=== PATIENT | male | born 1945 | race Two or more races ===

== ENCOUNTER 2020-06-24 07:40 | Day surgery (SDC) | payer MEDICARE, SELFPAY ==
[~2020-06-24] VITALS: Ht 177.8 cm; Wt 72.6 kg
[2020-06-24] VITALS (8 sets, daily range): BP systolic 113–149; BP diastolic 67–75
--- NOTE | 2020-06-24 06:29 | Pre-Procedure Note/Attestation ---
Pre-Procedure Note/Attestation Complete Prior to Procedure Planned Procedure: left - Removal of cataract and placement of intraocular lens , left eye Procedure Narrative: Removal of cataract and placement of intraocular lens, left eye Indications for Procedure Pre-Operative Diagnosis: Cataract, combined, left eye Attestation I attest that I discussed the nature of the procedure; its benefits; risks and complications; and alternatives (and the risks and benefits of such alternatives ), prior to the procedure, with the patient (or the patient's legal retention representative). I attest that, if there was a reasonable possibility of needing a blood transfusion, the patient (or the patient's legal retention representative) was given the [place] Department of Health Services standardized written summary, pursuant to the [place] Blood Safety Act ([place] Health and Safety Code # 1645, as amended). I attest that I re-evaluated the patient just prior to the surgery and that there has been no change in the patient's H&P, except as documented below: John Jacobo MD Jun 24, 2020 06:29
[~2020-06-24 07:40] MED LIST: AMLODIPINE BESYL5 MG ORAL; ATENOLOL25 MG ORAL; ATORVASTATIN CA40 MG ORAL; LEXAPRO20 MG ORAL; LISINOPRIL2.5 MG ORAL; NEURONTIN600 MG ORAL; PROSCAR5 MG ORAL
[2020-06-24] MEDS ORDERED: Lidocaine 4% Amp 5ml ONE (09:09)
[2020-06-24] MEDS ORDERED: Lidocaine 1% MPF 10mg/ml 5ml ONE (09:09)
[2020-06-24] MEDS ORDERED: EPINEPHrine 1mg/1ml Amp ONE (09:09)
[2020-06-24] MEDS ORDERED: Tetracaine 0.5% Opth 4ml Soln ONE ×2 (09:10→11:56)
[2020-06-24] MEDS ORDERED: prednisoLONE acetate 1% Opth Susp 1ml ONE (09:10)
[2020-06-24] MEDS ORDERED: BSS 500ml btl ONE (09:10)
[2020-06-24] MEDS ORDERED: BSS 15ml BTL ONE (09:10)
[2020-06-24] MEDS ORDERED: Maxitrol Opth Oint 3.5gm ONE (09:10)
[2020-06-24] MEDS ORDERED: Sodium Hyaluronate 10 mg/ml 0.85ml ONE (09:10)
[2020-06-24] MEDS ORDERED: Povidone-Iodine 5% opth solution ONE (09:10)
[2020-06-24] MEDS: Ciprofloxacin Opth Soln 5ml LEFT EYE SCH ×3 (09:25→09:55)
[2020-06-24] MEDS: Phenylephrine 10% Opth Soln 5ml LEFT EYE SCH ×3 (09:26→09:56)
[2020-06-24] MEDS: Akten 3.5% 1ml Btl LEFT EYE SCH ×3 (09:26→09:57)
[2020-06-24] MEDS: Flurbiprofen 0.03% Opth Sol 2.5ml LEFT EYE SCH ×3 (09:26→09:56)
[2020-06-24] MEDS: Tobradex Opth Susp 2.5ml LEFT EYE SCH ×3 (09:26→09:56)
[2020-06-24] MEDS: Tropicamide 1% Opth 15ml Soln LEFT EYE SCH ×3 (09:27→09:56)
[2020-06-24] MEDS: Cyclopentolate 1% Opth Sol 2ml LEFT EYE SCH ×3 (09:27→09:56)
[2020-06-24] MEDS ORDERED: NS Irrig 1000ml ONE (12:00)
[2020-06-24] MEDS ORDERED: LR 1000ml ONE (12:00)
[2020-06-24] MEDS ORDERED: Sterile Water Irrig 1000ml IRRIG ONE (12:00)
[2020-06-24] MEDS ORDERED: fentaNYL 100 mcg/2 mL IV ONE (12:00)
[2020-06-24] MEDS ORDERED: LR 1000ml 1,000 ML IVLG SCH (12:02)
--- NOTE | 2020-06-24 12:02 | Anethesia Preoperative Eval ---
Anesthesia Pre-op PMH/ROS General Date of Evaluation: Jun 24, 2020 Time of Evaluation: 11:40 Anesthesiologist: Denis ASA Score: ASA 3 Mallampati Score Class I : Soft palate, uvula, fauces, pillars visible Class II: Soft palate, uvula, fauces visible Class III: Soft palate, base of uvula visible Class IV: Only hard plate visible Mallampati Classification: Class II Surgeon: Odalis Diagnosis: L eye cataract Surgical Procedure: Cataract extraction Anesthesia History: none Family History: no anesthesia problems Allergies: Coded Allergies: No Known Allergies (Unverified , 06/22/20) Medications: see eMAR Patient NPO?: Yes Past Medical History Cardiovascular: Reports: HTN, CAD - stable no recent CP, stents ; Denies: CO, valve dz, arrhythmia, other Pulmonary: Denies: asthma, COPD, JESU, other Gastrointestinal/Genitourinary: Reports: GERD, CRI, other - prostate CA s/p Sx Neurologic/Psychiatric: Reports: other - bilateral hands tremor; Denies: dementia, CVA, depression/anxiety, TIA Endocrine: Reports: DM; Denies: hypothyroidism, steroids, other HEENT: Reports: cataract (L), cataract (R); Denies: glaucoma, [place] (L), [place] (R), other Hematology/Immune: Denies: anemia, DVT, bleeding disorder, other Musculoskeletal/Integumentary: Reports: OA; Denies: RA, DJD, DDD, edema, other PMH Narrative: as above PSxH Narrative: T&A, hernia, laminectomy, prostatectomy Anesthesia Pre-op Phys. Exam Physician Exam Last Vital Signs Date Time Temp Pulse Resp B/P (MAP) Pulse Ox O2 Delivery O2 Flow Rate FiO2 06/24/20 09:46 Room Air 06/24/20 09:38 97.8 59 18 113/67 96 Constitutional: NAD Neurologic: CN 2-12 intact Cardiovascular: RRR, no M/R/G Respiratory: CTA Gastrointestinal: S/NT/ND Airway Exam Mallampati Score: Class II MO: limited Neck: stiff ROM: limited Teeth: missing Dentures: no upper, no lower Anesthesia Pre-op A/P Labs see chart Studies Pre-op Studies: EKG - SR Risk Assessment & Plan Assessment: ASA 3 Plan: MAC Status Change Before Surgery: No Emeka Barrios MD Jun 24, 2020 12:02
[2020-06-24] MEDS ORDERED: fentaNYL 100 mcg/2 mL IV PRN (12:15)
--- NOTE | 2020-06-24 12:40 | Discharge Instructions ---
Discharge Instructions Discharge Instructions Follow Up Orders Continue preoperative eye drops Wear shield at all times except to place eye drops Followup tomorrow in Dr Jacboo's office For Congestive Heart Failure Reminder Report to your physician any weight gain of 5 pounds or more in one week. John Jacobo MD Jun 24, 2020 12:40
--- NOTE | 2020-06-24 12:43 | Brief Operative Note ---
Immediate Post Operative Note Operative Note Pre-op Diagnosis: Cataract, combined, left eye Procedure: Phaco PC IOL OS Post-op Diagnosis: +4 NS (very dense centrally) +3 Cortical, +3 PSC Post-op Diagnosis: same as pre-op Surgeon: Hank Jacobo MD MS Marble Cutter: none Anesthesiologist: Dr Barrios Anesthesia: local, MAC Specimen: none Complications: none Fluids: see chart Implant(s) used?: Yes - Chris TFNT00 20.0 John Jacobo MD Jun 24, 2020 12:43
[2020-06-24] MEDS ORDERED: Carbachol 0.01% Op Soln 1.5ml vial ONE (12:46)
--- NOTE | 2020-06-24 12:46 | Immediate Post-Op Evaluation ---
Immediate Post-Op Evalulation Immediate Post-Op Evalulation Procedure: L eye cataract extraction with IOL Date of Evaluation: Jun 24, 2020 Time of Evaluation: 12:45 IV Fluids: 300 Blood Products: none Estimated Blood Loss: none Urinary Output: none Blood Pressure Systolic: 139 Blood Pressure Diastolic: 74 Pulse Rate: 58 Respiratory Rate: 19 O2 Sat by Pulse Oximetry: 97 Temperature (Fahrenheit): 97.7 Pain Score (1-10): 1 Nausea: No Vomiting: No Complications none Patient Status: awake, patent, none Hydration Status: adequate Emeka Barrios MD Jun 24, 2020 12:46
--- NOTE | 2020-06-24 12:48 | 48 Hour Post Anesthesia Eval ---
Post Anesthesia Evaluation Procedure: L eye cataract extraction with IOL Date of Evaluation: Jun 24, 2020 Time of Evaluation: 13:25 Blood Pressure Systolic: 128 0: 72 Pulse Rate: 62 Respiratory Rate: 16 Temperature (Fahrenheit): 97.8 O2 Sat by Pulse Oximetry: 98 Airway: patent Nausea: No Vomiting: No Pain Intensity: 1 Hydration Status: adequate Cardiopulmonary Status: stable Mental Status/LOC: patient returned to baseline Follow-up Care/Observations: n/a Post-Anesthesia Complications: none Follow-up care needed: ready to discharge Emeka Barrios MD Jun 24, 2020 12:48
--- NOTE | 2020-06-24 16:00 | Operative Note - Dictated ---
DATE OF OPERATION: 06/24/2020 SURGEON: John Jacobo M.D. DIRECTOR SALES SUPPORT: None. ANESTHESIOLOGIST: Emeka Barrios M.D. ANESTHESIA: Local/standby/monitored anesthesia care. PREOPERATIVE DIAGNOSIS: Combined cataract, left eye. POSTOPERATIVE DIAGNOSIS: Combined cataract, left eye. PROCEDURE: 1. Phacoemulsification of cataract, left eye. 2. Placement of posterior chamber intraocular lens, left eye (model Chris TFNT00, power 20.0). SPECIMENS: None. COMPLICATIONS: None. INDICATIONS FOR SURGERY: The patient has had the painless progressive decrease in visual acuity in the left eye secondary to cataract. The patient understands the risks of surgery including infection, bleeding, need for further surgery, loss of vision, no improvement in vision, loss of the eye, loss of life, glaucoma, retinal detachment, understands these risks, and elects to proceed with surgery. FINDINGS: The patient has very dense centrally +4 nuclear sclerotic cataract with +3 cortical cataract and a +3 posterior subcapsular cataract. There was also noted to be a rent in the anterior capsule at approximately 11 o'clock, but this did not extend posteriorly at all and stayed anteriorly. Otherwise, the capsule remained intact during the entire procedure. The lens was positioned such that it was 180 degrees perpendicular to the rent. OPERATIVE NOTE: After informed consent was obtained, the patient was brought into the operating room, placed in supine position. Cardiac and respiratory monitors were attached. A time-out was performed and all criteria were met and everyone in the room agreed. The left eye was then draped and prepped in sterile manner for ocular surgery. A lid speculum was placed in the eye. Lidocaine 1%, preservative-free, was injected at the approximate 2:30 limbus. A conjunctival peritomy from approximately 2:30 to 3:30 was made and dissected posteriorly. Hemostasis was maintained with bipolar cautery. A 2.6 mm limbal incision was made centered at approximately 2:30 and dissected anteriorly. A paracentesis was made at approximately 5:30 and Shugarcaine was injected into the anterior chamber, followed by Healon. The anterior chamber was then entered using a 2.6 mm keratome through the limbal incision. An anterior capsulorrhexis was then performed. Hydrodissection and hydrodelineation of the lens was then performed. The lens was then phacoemulsified using divide and conquer four-quadrant technique. The lens was very dense centrally and had to go up in phaco power in order to phacoemulsify it. The lens was phacoemulsified using divide and conquer technique. All 4 quadrants of the nucleus were removed. The nucleus was removed, followed by the cortical material. There was noted to be a rent in the anterior capsule at approximately 10 o'clock. This did not extend posteriorly at all, not even past the equator. Healon was injected into the capsular bag and anterior chamber. The lens was taken from its package, placed into the cartridge, and the tip of the cartridge was placed through the limbal incision. The lens was injected into the capsular bag and centered with a Sinskey hook. It was placed perpendicular to the rent and both haptics and optic were in the capsular bag. Healon was aspirated from the anterior chamber and capsular bag. One 10-0 nylon interrupted suture was then placed through the limbal incision and knot was rotated and buried. The wounds were checked and found to be watertight. Care was taken during the entire procedure not to touch the endothelium. Again, the intra-ocular lens was checked in both haptics and the optic were in the capsular bag 180 degrees from the anterior capsular rent. Miostat was injected into the anterior chamber. The lid speculum and drapes were removed from the eye. Again, the lens was checked and both haptics and the optic were in the capsular bag centered at approximately 180 degrees from the small anterior capsular rent. After the lid speculum and drapes were removed from the eye, drops of Pred Forte, TobraDex, and ciprofloxacin were applied to the eye, followed by Maxitrol ointment and then a shield. The patient tolerated the procedure well and left the operating room awake, alert, and in stable condition. John Jacobo M.D. DR: JAUN JOB#: [id number] CC:
== END 2020-06-24 13:45 | disposition home or self-care (01) ==
LOC: SUR 07:40
DX: H25.12 Age-related nuclear cataract, left eye (principal); H25.042 Posterior subcapsular polar age-related cataract, left eye; H25.012 Cortical age-related cataract, left eye; I11.9 Hypertensive heart disease without heart failure; I25.10 Atherosclerotic heart disease of native coronary artery without angina pectoris; E11.9 Type 2 diabetes mellitus without complications; M19.90 Unspecified osteoarthritis, unspecified site; Z90.79 Acquired absence of other genital organ(s); K21.9 Gastro-esophageal reflux disease without esophagitis; Z95.5 Presence of coronary angioplasty implant and graft
CPT/HCPCS: 66984; 94003; J0171; J1100; J2704; J3010; J7120; U0002; V2632; 94150

== ENCOUNTER 2020-07-29 08:27 | Day surgery (SDC) | payer MEDICARE, SELFPAY ==
--- NOTE | 2020-07-28 22:17 | Pre-Procedure Note/Attestation ---
Pre-Procedure Note/Attestation Complete Prior to Procedure Planned Procedure: right - Removal of cataract and placement of intraocular lens, right eye Procedure Narrative: Removal of cataract and placement of intraocular lens, right eye Indications for Procedure Pre-Operative Diagnosis: Cataract, combined, right eye Attestation I attest that I discussed the nature of the procedure; its benefits; risks and complications; and alternatives (and the risks and benefits of such alternatives ), prior to the procedure, with the patient (or the patient's legal employee's representative). I attest that, if there was a reasonable possibility of needing a blood transfusion, the patient (or the patient's legal employee's representative) was given the [place] Department of [employer] Services standardized written summary, pursuant to the [place] Blood Safety Act ([place] Health and Safety Code # 1645, as amended). I attest that I re-evaluated the patient just prior to the surgery and that there has been no change in the patient's H&P, except as documented below: John Jacobo MD Jul 28, 2020 22:17
[2020-07-29] VITALS (8 sets, daily range): BP systolic 119–162; BP diastolic 58–75
[~2020-07-29] VITALS: Ht 177.8 cm; Wt 74.8 kg
[2020-07-29] MEDS ORDERED: Cyclopentolate 1% Opth Sol 2ml ONE (10:16)
[2020-07-29] MEDS ORDERED: Akten 3.5% 1ml Btl ONE (10:16)
[2020-07-29] MEDS ORDERED: Diclofenac Sod 0.1% Op Soln ONE (10:16)
[2020-07-29] MEDS ORDERED: Phenylephrine 10% Opth Soln 5ml ONE (10:16)
[2020-07-29] MEDS ORDERED: Vigamox Opth Soln 3ml ONE (10:16)
[2020-07-29] MEDS ORDERED: Tropicamide 1% Opth 15ml Soln ONE (10:16)
[2020-07-29] MEDS ORDERED: EPINEPHrine 1mg/1ml Amp ONE (10:20)
[2020-07-29] MEDS ORDERED: Fluorescein Strips ONE (10:21)
[2020-07-29] MEDS ORDERED: Maxitrol Opth Oint 3.5gm ONE (10:21)
[2020-07-29] MEDS ORDERED: timoloL maleate 0.5% Op Soln 2.5ml ONE (10:21)
[2020-07-29] MEDS ORDERED: Carbachol 0.01% Op Soln 1.5ml vial ONE (10:21)
[2020-07-29] MEDS ORDERED: prednisoLONE acetate 1% Opth Susp 1ml ONE (10:21)
[2020-07-29] MEDS ORDERED: Lidocaine 4% Amp 5ml ONE (10:21)
[2020-07-29] MEDS ORDERED: Lidocaine 1% MPF 10mg/ml 5ml ONE ×3 (10:21→11:56)
[2020-07-29] MEDS ORDERED: BSS 15ml BTL ONE (10:22)
[2020-07-29] MEDS ORDERED: Povidone-Iodine 5% opth solution ONE (10:22)
[2020-07-29] MEDS ORDERED: BSS 500ml btl ONE (10:22)
[2020-07-29] MEDS ORDERED: Sodium Hyaluronate 10 mg/ml 0.85ml ONE (10:22)
[2020-07-29] MEDS ORDERED: Tetracaine 0.5% Opth 4ml Soln ONE (10:22)
[2020-07-29] MEDS: Tropicamide 1% Opth 15ml Soln RIGHT EYE SCH ×3 (10:38→10:51)
[2020-07-29] MEDS: Tobradex Opth Susp 2.5ml RIGHT EYE SCH ×3 (10:38→10:51)
[2020-07-29] MEDS: Diclofenac Sod 0.1% Op Soln RIGHT EYE SCH ×3 (10:38→10:51)
[2020-07-29] MEDS: Akten 3.5% 1ml Btl RIGHT EYE SCH ×3 (10:39→10:51)
[2020-07-29] MEDS: Cyclopentolate 1% Opth Sol 2ml RIGHT EYE SCH ×3 (10:39→10:51)
[2020-07-29] MEDS: Phenylephrine 10% Opth Soln 5ml RIGHT EYE SCH ×3 (10:39→10:51)
[2020-07-29] MEDS: Vigamox Opth Soln 3ml RIGHT EYE SCH ×3 (10:40→10:51)
[2020-07-29] MEDS ORDERED: LR 1000ml 1,000 ML IVLG SCH (10:53)
--- NOTE | 2020-07-29 10:57 | Anethesia Preoperative Eval ---
Anesthesia Pre-op PMH/ROS General Date of Evaluation: Jul 29, 2020 Time of Evaluation: 10:49 Anesthesiologist: Sophia ASA Score: ASA 3 Mallampati Score Class I : Soft palate, uvula, fauces, pillars visible Class II: Soft palate, uvula, fauces visible Class III: Soft palate, base of uvula visible Class IV: Only hard plate visible Mallampati Classification: Class II Surgeon: Odalis Cataract Diagnosis: Cataract OD Surgical Procedure: Cat Ext IOL OD Anesthesia History: none Family History: no anesthesia problems Allergies: Coded Allergies: No Known Allergies (Unverified , 07/29/20) Medications: see eMAR Patient NPO?: Yes Past Medical History Cardiovascular: Reports: HTN, CAD - Stent, other - HL Gastrointestinal/Genitourinary: Reports: other - Prostate CA PSxH Narrative: Prostatectomy, RIHR, Laminectomy Anesthesia Pre-op Phys. Exam Physician Exam Last Vital Signs Date Time Temp Pulse Resp B/P (MAP) Pulse Ox O2 Delivery O2 Flow Rate FiO2 07/29/20 10:49 97.4 53 18 136/72 96 Room Air Constitutional: NAD Neurologic: CN 2-12 intact Cardiovascular: RRR Respiratory: CTA Gastrointestinal: S/NT/ND Airway Exam Mallampati Score: Class II MO: full ROM: limited Teeth: missing, intact Anesthesia Pre-op A/P Risk Assessment & Plan Assessment: ASA 3 Plan: TIVA Status Change Before Surgery: Geo Moran MD Jul 29, 2020 10:57
--- NOTE | 2020-07-29 10:58 | Immediate Post-Op Evaluation ---
Immediate Post-Op Evalulation Immediate Post-Op Evalulation Procedure: Cat Ext IOL OD Date of Evaluation: Jul 29, 2020 Time of Evaluation: 12:47 IV Fluids: 700 LR Blood Products: 0 Estimated Blood Loss: 1 Urinary Output: 0 Blood Pressure Systolic: 162 Blood Pressure Diastolic: 72 Pulse Rate: 51 Respiratory Rate: 16 O2 Sat by Pulse Oximetry: 99 Temperature (Fahrenheit): 97.1 Pain Score (1-10): 1 Nausea: No Vomiting: No Complications 0 Patient Status: awake, reacts, patent, none Hydration Status: adequate Geo Cortes MD Jul 29, 2020 10:58
--- NOTE | 2020-07-29 10:59 | 48 Hour Post Anesthesia Eval ---
Post Anesthesia Evaluation Procedure: Cat Ext IOL OD Date of Evaluation: Jul 29, 2020 Time of Evaluation: 14:53 Blood Pressure Systolic: 156 0: 78 Pulse Rate: 52 Respiratory Rate: 18 Temperature (Fahrenheit): 97.4 O2 Sat by Pulse Oximetry: 99 Airway: patent Nausea: No Vomiting: No Pain Intensity: 1 Hydration Status: adequate Cardiopulmonary Status: Stable Mental Status/LOC: patient returned to baseline Follow-up Care/Observations: 0 Post-Anesthesia Complications: 0 Follow-up care needed: ready to discharge Geo Cortes MD Jul 29, 2020 10:58
[2020-07-29] MEDS ORDERED: NS Irrig 1000ml ONE (11:00)
[2020-07-29] MEDS ORDERED: Sterile Water Irrig 1000ml IRRIG ONE (11:00)
[2020-07-29] MEDS ORDERED: Metoclopramide 10mg/2ml Inj IVP PRN (11:00)
[2020-07-29] MEDS ORDERED: Midazolam 2mg/2ml Inj IVP PRN (11:00)
[2020-07-29] MEDS ORDERED: Meperidine 25mg/0.5ml Inj (FOR RIGORS ONLY) IV PRN (11:00)
[2020-07-29] MEDS ORDERED: DiphenhydrAMINE 50mg/ml Inj IVP PRN (11:00)
[2020-07-29] MEDS ORDERED: oxyCODONE HCL/Acetaminophen 5/325mg ORAL PRN (11:00)
[2020-07-29] MEDS ORDERED: LR 1000ml ONE (11:00)
[2020-07-29] MEDS ORDERED: HYDROcodone/Acetamin 5/325 tab ORAL PRN (11:00)
[2020-07-29] MEDS ORDERED: fentaNYL 100 mcg/2 mL IV PRN (11:00)
[2020-07-29] MEDS ORDERED: Labetalol 5mg/ml 20ml vial IV PRN (11:00)
[2020-07-29] MEDS ORDERED: HYDROcodone/Acetamin 7.5/325 tab ORAL PRN (11:00)
[2020-07-29] MEDS ORDERED: Atropine Sulfate 0.4mg/ml inj IVP PRN (11:00)
[2020-07-29] MEDS ORDERED: LORazepam Inj 2mg/ml 1ml IV PRN (11:00)
[2020-07-29] MEDS ORDERED: Hydromorphone 0.5mg/0.5ml inj IVP PRN (11:00)
[2020-07-29] MEDS ORDERED: Ketorolac 30mg Inj IV PRN ×2 (11:00)
[2020-07-29] MEDS ORDERED: Midazolam 2mg/2ml Inj ONE (11:03)
[2020-07-29] MEDS ORDERED: Bupivacaine 0.75% 30ml vial INJ ONE (11:57)
--- NOTE | 2020-07-29 12:00 | Pre-op HX & Phy Repo 2 SIG ---
DATE OF ADMISSION: 07/29/2020 PRESURGICAL INTERNAL MEDICINE HISTORY AND PHYSICAL. DATE OF EVALUATION: 07/29/2020 REASON FOR EVALUATION: I was asked by Dr. John Jacobo to see this 75-year-old male who going for elective surgery on the right eye. The patient has nuclear sclerotic cataract, right eye. Please see full Ophthalmology History and Physical by Dr. John Jacobo. The patient was evaluated in outpatient procedure department of [facility]. PAST MEDICAL HISTORY AND REVIEW OF SYSTEMS: Remarkable for hypertension, atherosclerotic heart disease. Denies history of diabetes. No history of anemia. The patient has history of prostate cancer two years ago. No thyroid problem. No diabetes. No renal failure. The patient denies history of heart attack, but has two coronary artery stents 12 years ago. Denies history of respiratory problem, asthma, or bronchitis. No GI problem. No bleeding. No hepatitis. No history of stroke. PAST SURGICAL HISTORY: Coronary stent x2 12 years ago, abdominal hernia repair, left eye cataract surgery few months ago, and prostatectomy for prostate cancer 2 years ago. FAMILY HISTORY: Mother of old age at 98 and father from heart attack. ALLERGIES: Not known to medication or food. PRESENT MEDICATIONS: Include lisinopril, atorvastatin, baby aspirin, amlodipine. SOCIAL HISTORY: The patient smoked for 5 years. Alcohol in the past. No street drugs. PHYSICAL EXAMINATION: GENERAL: The patient is alert, well-developed and well-nourished male in his 70s. The patient is alert. VITAL SIGNS: Blood pressure 136/72, temperature 97.4, pulse 53, respirations 18, O2 saturation 95% on room air. SKIN: Clear, warm, dry. No rashes. LYMPHATICS: Lymph nodes not enlarged. HEENT: Head normocephalic, atraumatic. Ears, clear. Eyes, full description per Dr. John Jacobo. Mouth clear and moist, no dentures. NECK: Supple. No jugular venous distention. Carotids artery +2. Trachea midline. CHEST: No deformity or asymmetry. LUNGS: Clear to auscultation and percussion. No rales, rhonchi. ABDOMEN: Soft, benign. No palpable mass. No rebound. EXTREMITIES: No edema. No varicose vein. No deep vein thrombosis. No deformity. GENITOURINARY: Status post prostatectomy for cancer of the prostate 2 years ago. CVA nontender. NERVOUS SYSTEM: No tremor. No nystagmus. Last p.o. 7 p.m. yesterday. LABORATORY AND DIAGNOSTIC DATA: ECG done June 05, 2020, normal sinus rhythm, normal ECG. Laboratory work pending. IMPRESSION: 1. Nuclear sclerotic cataract, right eye. 2. Hypertension, controlled. 3. Atherosclerotic heart disease. 4. Coronary stent x2 12 years ago. 5. History of prostate cancer. PLAN: Cataract extraction right eye with intraocular lens implant by Dr. John Jacobo. CONCLUSION: The patient is a 75-year-old male with history of prostate cancer and hypertension, controlled. The patient's vital signs stable, O2 saturation 95%. The patient's did not eat or drink from 7 p.m. yesterday. The patient's condition optimized for surgery. Thank you very much, Dr. John Jacobo, for privilege to participate in presurgical care of this interesting patient. Ramos Schumacher M.D. DR: Husam JOB#: [id number] CC:
--- NOTE | 2020-07-29 12:28 | Discharge Instructions ---
Discharge Instructions Discharge Instructions Follow Up Orders Continue preop eye drops Wear shield at all times except to place eye drops Followup tomorrow in Dr Jacobo's office For Congestive Heart Failure Reminder Report to your physician any weight gain of 5 pounds or more in one week. John Jacobo MD Jul 29, 2020 12:28
--- NOTE | 2020-07-29 12:31 | Brief Operative Note ---
Immediate Post Operative Note Operative Note Pre-op Diagnosis: Cataract, combined, right eye Procedure: Cataract, combined, right eye Post-op Diagnosis: Phaco PC IOL right eye Use of Malyugen ring right eye (7.0mm) Post-op Diagnosis: same as pre-op plus - Miotic pupil Surgeon: Hank Jacobo MD Mobility Specialist: none Anesthesiologist: Dr Cortes Anesthesia: local, MAC Specimen: none Complications: none Fluids: see chart Estimated Blood Loss: none Implant(s) used?: Yes - Acrysof TFNT00 21.0 John Jacobo MD Jul 29, 2020 12:31
--- NOTE | 2020-07-30 01:29 | Operative Note - Dictated ---
DATE OF OPERATION: 07/29/2020 SURGEON: John Jacobo MD PRISON TEACHER: None. ANESTHESIOLOGIST: Geo Cortes MD ANESTHESIA: Local/standby/monitored anesthesia care. PREOPERATIVE DIAGNOSES: 1. Cataract, combined, right eye. 2. Miosis, right eye. POSTOPERATIVE DIAGNOSES: 1. Cataract, combined, right eye. 2. Miosis, right eye. PROCEDURES: 1. Phacoemulsification of cataract, right eye. 2. Placement of posterior chamber intraocular lens, right eye (model AcrySof IQ PanOptix, TFNT00, power 21.0). 3. Use of Malyugin ring (7.0 mm). SPECIMENS: None. COMPLICATIONS: None. INDICATIONS FOR SURGERY: The patient has had the painless progressive decrease in visual acuity in the right eye secondary to cataract. The patient understands the risks of surgery including infection, bleeding, need for further surgery, loss of vision, no improvement in vision, loss of the eye, loss of life, glaucoma, retinal detachment, and elected to proceed with surgery. FINDINGS: The patient had a +3 nuclear sclerotic cataract as well as a +2 cortical cataract. In addition, the pupil was miotic. OPERATIVE NOTE: After informed consent was obtained, the patient was brought into the operating room, placed in the supine position. Cardiac and respiratory monitors were attached. A time-out was performed and all criteria were met and everyone in the room agreed. The right eye was then draped and prepped in sterile manner for ocular surgery. A lid speculum was placed in the eye. Lidocaine 1% preservative-free was injected at the approximate 8:30 limbus. A conjunctival peritomy from approximately 8:30 to 9:30 was made and dissected posteriorly. Hemostasis was maintained with bipolar cautery. A 2.6 mm limbal incision was made and centered at approximately 8:30 and dissected anteriorly. A paracentesis was made at approximately 12 o'clock and Shugarcaine was injected into the anterior chamber, followed by Healon. The anterior chamber was then entered using a 2.8 mm keratome through the limbal incision. Healon was again injected into the anterior chamber. The Malyugin ring was then injected into the anterior chamber and placed at 4 points along the pupillary margins to enlarge the pupil. An anterior capsulorrhexis was then performed. Hydrodissection and hydrodelineation of the lens was then performed. The lens was then phacoemulsified using a divide and conquer four-quadrant technique. Note: The patient constantly kept looking down . He was awake and he understood, but he kept looking downwards. At one point, I then closed the wound and performed cautery at the peripheral inferior temporal quadrant and cut down to the sclera and gave a peribulbar injection using 0.75% Marcaine and 1% lidocaine. This helped a little bit, but the patient constantly kept looking downward during the procedure and Anesthesia felt that enough was given. Despite this, the lens was phacoemulsified using divide and conquer four-quadrant technique and residual cortical material was aspirated. Healon was injected into the anterior chamber and capsular bag. The lens was taken from its package, placed in the cartridge, and the tip of the cartridge was placed through the limbal incision. The lens was injected into the capsular bag and centered nicely with a Sinskey hook. There was noted to be a small rent in the anterior capsule at approximately 11 o'clock. This did not go past the equator and stayed more anterior to the equator. The lens was definitely 100% in the capsular bag and away from the rent. Healon was aspirated from the anterior chamber and capsular bag. More Healon was injected into the anterior chamber and the Malyugin ring was removed without difficulty. Healon was aspirated from the anterior chamber and capsular bag. Miostat was injected into the anterior chamber and again the optic and both haptics were noted to be in the capsular bag away from the anterior rent at approximately 11 o'clock. The lens was centered nicely. The pupil came down around. The wounds were hydrated and closed. One 10-0 nylon interrupted suture was placed through the limbal incision and knot was rotated and buried. All wounds were checked and found to be watertight. Care was taken during the entire procedure not to touch the endothelium. The conjunctiva at the wound was closed with forceps cautery as well as in the inferior temporal quadrant. The wound there was also closed with forceps cautery. The lid speculum and drapes were removed from the eye and drops of Pred Forte and TobraDex and moxifloxacin were applied to the eye, followed by Maxitrol ointment and then a shield. The patient tolerated the procedure well and left the operating room awake, alert, and in stable condition. John Jacobo M.D. DR: JAUN JOB#: [id number] CC:
== END 2020-07-29 14:00 | disposition home or self-care (01) ==
LOC: SUR 08:27
DX: H25.11 Age-related nuclear cataract, right eye (principal); H25.011 Cortical age-related cataract, right eye; H57.03 Miosis; I10 Essential (primary) hypertension; I25.10 Atherosclerotic heart disease of native coronary artery without angina pectoris; Z85.46 Personal history of malignant neoplasm of prostate; Z95.5 Presence of coronary angioplasty implant and graft; Z79.82 Long term (current) use of aspirin; Z79.899 Other long term (current) drug therapy; Z87.891 Personal history of nicotine dependence; Z90.79 Acquired absence of other genital organ(s)
CPT/HCPCS: 66982; 94003; J0171; J1100; J2250; J3490; J7120; U0002; V2632; 94150